=== PATIENT | male | born 1960 | race Caucasian/White ===

== ENCOUNTER 2017-08-23 07:06 | Inpatient (IN) | payer OTHER ==
[~2017-08-23] VITALS: Ht 180.3 cm; Wt 88.5 kg
--- NOTE | 2017-08-23 07:19 | ED CARDIAC/CP/PALPITATIONS ---
History of Present Illness General Chief Complaint: Chest Pain Stated Complaint: SIB URGENT CARE FOR CP Source: patient, family Exam Limitations: language barrier Vital Signs & Intake/Output Vital Signs & Intake/Output Vital Signs Date Time Temp Pulse Resp B/P B/P Pulse O2 O2 Flow FiO2 Mean Ox Delivery Rate 08/23 1002 100 Room Air 08/23 0934 98.1 80 20 160/100 100 Room Air 08/23 0831 60 20 161/87 100 Nasal 2.0L Cannula 08/23 0802 178/106 08/23 0723 96.3 92 18 143/96 99 Room Air Room Air Allergies Coded Allergies: No Known Allergies (08/23/17) Reconcile Medications Aspirin (Ecotrin*) 81 MG TABLET.DR 1 TAB PO DAILY HEART HEALTH (Reported) Oxymetazoline HCl (Afrin) 0.05 % SPRAY 1 SPRAY KARRI DAILY PRN ALLERGIES ( Reported) Triage Nurses Notes Reviewed? yes Onset: Abrupt Duration: day(s): (5) Timing: recent history Activities at Onset: none Modifying Factors: Improves With: rest. Worsens With: movement. Aspirin Today: no aspirin today Associated Symptoms: DYSPNEA WITH EXERTION HPI: This is a very pleasant 56-year-old male, Nauruan speaking primarily who presents to the ER for chief complaint of shortness of breath that began on Monday with exertion. On Monday he noticed at work that he was unable to do the things he normally did. No chest pain. He went to go see urgent care that day who told him that his heart was fast and regular and advised him to come to the ER. He decided not to come on Monday but this morning he made the decision to come to the hospital. No history of irregular heartbeat but he reports history of high blood pressure previously while in the service. History is obtained via daughter over the phone. He denies any smoking history. Occasional alcohol. Positive family history of hypertension. No recent prolonged immobilization. At rest he denies any shortness of breath or chest pain. He usually takes a baby aspirin but did not take it today. Past History Travel History Traveled to [place] past 21 day No Medical History Any Pertinent Medical History? see below for history Cardiovascular: hypertension (NO MEDS) Surgical History Surgical History: non-contributory Family History Comment: HTN IN FAMILY Hx Contributory? Yes Review of Systems Review of Systems Constitutional: Denies: chills, fever. EENTM: Reports: no symptoms. Respiratory: Reports: short of breath. Denies: cough, sputum production. Cardiovascular: Denies: chest pain, palpitations, peripheral edema. GI: Denies: abdominal pain. Genitourinary: Reports: no symptoms. Musculoskeletal: Reports: no symptoms. Skin: Reports: no symptoms. Neurological/Psychological: Reports: no symptoms. Hematologic/Endocrine: Denies: bruising, bleeding, polyuria, polydipsia. Immunologic/Allergic: Denies: splenectomy. All Other Systems: Reviewed and Negative Physical Exam Physical Exam General Appearance: well developed/nourished, alert, awake, mild distress, moderate distress Head: atraumatic, normal appearance Eyes: Bilateral: normal appearance, PERRL, EOMI. Ears, Nose, Throat: normal pharynx, normal ENT inspection, hearing grossly normal Neck: normal inspection, supple, full range of motion Respiratory: normal breath sounds, chest non-tender, no respiratory distress Cardiovascular: tachycardia, irregularly irregular Peripheral Pulses: 2+ radial (R), 2+ radial (L) Gastrointestinal: normal bowel sounds, soft, non-tender Rectal: BROWN OB NEG Extremities: normal inspection, normal capillary refill, normal range of motion, swelling (TRACE BILATERALLY) Neurologic/Psych: no motor/sensory deficits, awake, alert, oriented x 3 Skin: intact, normal color, warm/dry Core Measures ACS in differential dx? Yes CVA/TIA Diagnosis No Sepsis Present: No Sepsis Focused Exam Completed? No Progress Differential Diagnosis: AMI, atrial fibrillation, CHF/pulm edema, pulmonary embolism Plan of Care: Orders Procedure Date/time Status Heart Healthy Diet 08/23 L Active Patient Data 08/23 0934 Active ED Holding Orders 08/23 0847 Active Admit to inpatient 08/23 0847 Active Vital Signs 08/23 0847 Active Code Status 08/23 0847 Active Intake & Output 08/23 0831 Active TROPONIN LEVEL 08/23 0716 Complete PARTIAL THROMBOPLASTIN TIME 08/23 0716 Complete PROTHROMBIN TIME 08/23 0716 Complete LIPASE 08/23 0716 Complete HEPATIC FUNCTION PANEL 08/23 0716 Complete D-DIMER 08/23 0716 Complete CBC WITHOUT DIFFERENTIAL 08/23 0716 Complete BASIC METABOLIC PANEL 08/23 0716 Complete AMYLASE 08/23 0716 Complete EKG 08/23 0708 Active Current Medications Sig/Nandini Start time Last Medication Dose Stop Time Status Admin Diltiazem HCl 125 MG ONCE ONE 08/23 744 AC 08/23 (Cardizem DRIP) 08/23 Sodium Chloride 100 ML (Normal Saline 0.9%) Heparin Sodium 25,000 UNIT Q24H 08/23 744 AC 08/23 (Porcine) 08 (Heparin) Sodium Chloride 500 ML Laboratory Tests 08/23/17 0744: Anion Gap 19 H, Estimated GFR 57 L, BUN/Creatinine Ratio 27.7 H, Glucose 261 H, Calcium 9.2, Total Bilirubin 1.0, Direct Bilirubin 0.4, AST 338 H, ALT 330 H, Alkaline Phosphatase 122, Troponin I 0.38 *H, Total Protein 7.1, Albumin 4.1, Amylase 36, Lipase 270, PT 14.7 H, INR 1.40 H, APTT 31, D-Dimer High Sensitivty 3281 H, CBC w Diff NO MAN DIFF REQ, RBC 5.71, MCV 86.4, MCH 28.6, RDW 13.7, MPV 11.5 H, Gran % 72.7, Lymphocytes % 19.4 L, Monocytes % 7.1, Eosinophils % 0.4, Basophils % 0.4, Absolute Granulocytes 7.5 H, Absolute Lymphocytes 2.0, Absolute Monocytes 0.7 H, Absolute Eosinophils 0, Absolute Basophils 0, PUBS MCHC 33.1 Diagnostic Imaging: Viewed by Me: Radiology Read, CT Scan. Discussed w/RAD: Radiology Read, CT Scan. Radiology Impression: PATIENT: EDU BIRCH PRESENT AGE: 56 PATIENT ACCOUNT NO: [id number] : 56 LOCATION: [facility] ORDERING PHYSICIAN: Blaire Penn MD SERVICE DATE: 08/23/17 EXAM TYPE: CAT - CTA CHEST-PULMONARY EMBOLISM EXAMINATION: CT ANGIOGRAM OF THE CHEST WITH AND WITHOUT CONTRAST (CT PULMONARY ANGIOGRAM FOR PE) CLINICAL INFORMATION: Shortness of breath, rapid atrial fibrillation COMPARISON: Chest x-ray from earlier today TECHNIQUE: Prior to contrast administration, noncontrast localization images were obtained. Subsequently, multidetector volumetric imaging was performed from the thoracic inlet to below the diaphragms following the administration of 95 mL Optiray 320 intravenous contrast. No contrast reaction reported. Sagittal, coronal, and MIP oblique sagittal reformatted images were obtained on the CT workstation, uploaded to PACS, and reviewed. Total exam dose-length product 531.61 mGy-cm. FINDINGS: QUALITY OF STUDY/ CONTRAST BOLUS: Satisfactory PULMONARY ARTERIES: No central or segmental pulmonary emboli. Assessment of the subsegmental vasculature is limited due to respiratory motion artifact. THORACIC AORTA: Not fully evaluated given the contrast bolus timing. The proximal ascending aorta measures approximately 4.3 cm in diameter. LUNG: No regions of consolidation are present bilaterally. There is smooth interlobular septal thickening towards the lung periphery, most prominent at the bases and most consistent with mild interstitial edema. Mild associated bronchial wall thickening is noted. PLEURA: No pneumothorax. Trace right pleural effusion is noted. MEDIASTINUM: The visualized thyroid gland is unremarkable. There are mildly enlarged subcarinal, prevascular, and paratracheal lymph nodes which are nonspecific. There is moderate cardiomegaly. Coronary artery calcifications are present. CHEST WALL/AXILLA: No axillary or internal mammary lymphadenopathy. OSSEOUS STRUCTURES: Syndesmophytes are noted in the spine, favored to reflect ankylosing spondylitis. UPPER ABDOMEN: There is mild reflux of contrast into the hepatic veins which may be seen with elevated right heart pressures. IMPRESSION: 1. No pulmonary embolus identified. Limited assessment of the distal vasculature due to respiratory motion artifact. 2. Mild interstitial edema. 3. Mild lymphadenopathy which is nonspecific and can be reactive in the setting of edema. Other reactive causes are also possible. In the proper clinical setting, a malignant etiology could also have this appearance. 4. Cardiomegaly. Mild reflux of contrast into the hepatic veins, which can be seen with elevated right heart pressures. 5. Dilated ascending aorta to approximately 4.3 cm. 6. Trace right pleural effusion. 7. Appearance of the spine is consistent with ankylosing spondylitis. VTE: negative DICTATED BY: Blayne Laws MD DATE/TIME DICTATED:08/23/17941 SHIPPING AND RECEIVING OPERATOR: ANGELICA DATE/TIME TRANSCRIBED:08/23/17941 CONFIDENTIAL, DO NOT COPY WITHOUT APPROPRIATE AUTHORIZATION. <Electronically signed in Other Vendor System> SIGNED BY: Blayne Laws MD 08/23/17 1000 CXR Impression: PATIENT: EDU BIRCH PRESENT AGE: 56 PATIENT ACCOUNT NO: [id number] : 56 LOCATION: [facility] ORDERING PHYSICIAN: Blaire Penn MD SERVICE DATE: 08/23/17 EXAM TYPE: RAD - XRY -PORTABLE CHEST XRAY EXAMINATION: XR PORTABLE CHEST CLINICAL INFORMATION: Dyspnea, new rapid atrial fibrillation, rule out CHF COMPARISON: None TECHNIQUE: Portable frontal view of the chest was obtained. FINDINGS: Lung volumes are symmetric. No focal consolidation is seen. No evidence of pneumothorax, significant pleural effusion, or overt pulmonary edema. The cardiac silhouette is enlarged. No acute osseous findings are seen. IMPRESSION: Enlarged cardiac silhouette. No overt edema. DICTATED BY: Blayne Laws MD DATE/TIME DICTATED: 08/23/17809 SHIPPING AND RECEIVING OPERATOR:ANGELICA DATE/TIME TRANSCRIBED:08/23/17809 CONFIDENTIAL, DO NOT COPY WITHOUT APPROPRIATE AUTHORIZATION. <Electronically signed in Other Vendor System> SIGNED BY: Blayne Laws MD 08/23/17814 Initial ED EKG: AFIB (RVR, ST DEPRESSION 1, AVL V4-6) Rhythm Strip: atrial fibrillation Departure Departure Time of Disposition: 845 Disposition: STILL A PATIENT Condition: Stable Clinical Impression Primary Impression: Atrial fibrillation, rapid Secondary Impressions: Elevated troponin Departure Forms: Customer Survey General Discharge Information Admission Note Spoke With: Toño DEGROOT PHD,Elian Cole Documentation of Exam: Documentation of any treatments & extenuating circumstances including Concerns Regarding Discharge (functional status, medication knowledge or non-compliance, living conditions, etc.) that warrant an admission rather than observation: [ TELE MONITOR, IV HEPARIN DRIP, IV CARDIZEM DRIP, SERIAL EKG/TROPONIN, F/U CT CHEST ANGIOGRAM, ECHOCARDIOGRAM] Critical Care Note Critical Care Note Critical Care Time: 30-74 min
[2017-08-23] MEDS ORDERED: ASPIRIN EC81 M1 PO (07:51)
[2017-08-23] MEDS ORDERED: AFRIN30 ML NAS (07:52)
[2017-08-23 08:02] LABS: ABSOLUTE BASOPHIL COUNT 0 /CUMM (0.0-0.2); ABSOLUTE EOSINOPHIL COUNT 0 /CUMM (0.0-0.7); ABSOLUTE GRANULOCYTE CT 7.5 /CUMM (1.4-6.5); ABSOLUTE MONOCYTE COUNT 0.7 /CUMM (0.10-0.60); BASOPHIL % 0.4 % (0.0-2.0); EOSINOPHIL % 0.4 % (0-5); GRANULOCYTE % 72.7 % (42.2-75.2); HEMATOCRIT 49.4 % (42-52); MEAN CORPUSCULAR HGB 28.6 PG (27.0-31.0); MEAN CORPUSCULAR HGB CONC 33.1 G/DL (33.0-37.0); MEAN CORPUSCULAR VOLUME 86.4 FL (80.0-94.0); MEAN PLATELET VOLUME 11.5 FL (7.4-10.4); PLATELET COUNT 227 /CUMM (130-400); RBC DISTRIBUTION WIDTH 13.7 % (11.5-14.5); RED BLOOD CELL CT 5.71 /CUMM (4.70-6.10); WHITE BLOOD CELL COUNT 10.4 /CUMM (4.8-10.8)
--- NOTE | 2017-08-23 08:15 | RADIOLOGY REPORT ---
EXAMINATION: XR PORTABLE CHEST CLINICAL INFORMATION: Dyspnea, new rapid atrial fibrillation, rule out CHF COMPARISON: None TECHNIQUE: Portable frontal view of the chest was obtained. FINDINGS: Lung volumes are symmetric. No focal consolidation is seen. No evidence of pneumothorax, significant pleural effusion, or overt pulmonary edema. The cardiac silhouette is enlarged. No acute osseous findings are seen. IMPRESSION: Enlarged cardiac silhouette. No overt edema.
[2017-08-23 08:17] LABS: PT 14.7 SEC (9.4-12.5); PTT 31 SEC (25-37)
--- NOTE | 2017-08-23 10:00 | CT SCAN REPORT ---
EXAMINATION: CT ANGIOGRAM OF THE CHEST WITH AND WITHOUT CONTRAST (CT PULMONARY ANGIOGRAM FOR PE) CLINICAL INFORMATION: Shortness of breath, rapid atrial fibrillation COMPARISON: Chest x-ray from earlier today TECHNIQUE: Prior to contrast administration, noncontrast localization images were obtained. Subsequently, multidetector volumetric imaging was performed from the thoracic inlet to below the diaphragms following the administration of 95 mL Optiray 320 intravenous contrast. No contrast reaction reported. Sagittal, coronal, and MIP oblique sagittal reformatted images were obtained on the CT workstation, uploaded to PACS, and reviewed. Total exam dose-length product 531.61 mGy-cm. FINDINGS: QUALITY OF STUDY/CONTRAST BOLUS: Satisfactory PULMONARY ARTERIES: No central or segmental pulmonary emboli. Assessment of the subsegmental vasculature is limited due to respiratory motion artifact. THORACIC AORTA: Not fully evaluated given the contrast bolus timing. The proximal ascending aorta measures approximately 4.3 cm in diameter. LUNG: No regions of consolidation are present bilaterally. There is smooth interlobular septal thickening towards the lung periphery, most prominent at the bases and most consistent with mild interstitial edema. Mild associated bronchial wall thickening is noted. PLEURA: No pneumothorax. Trace right pleural effusion is noted. MEDIASTINUM: The visualized thyroid gland is unremarkable. There are mildly enlarged subcarinal, prevascular, and paratracheal lymph nodes which are nonspecific. There is moderate cardiomegaly. Coronary artery calcifications are present. CHEST WALL/AXILLA: No axillary or internal mammary lymphadenopathy. OSSEOUS STRUCTURES: Syndesmophytes are noted in the spine, favored to reflect ankylosing spondylitis. UPPER ABDOMEN: There is mild reflux of contrast into the hepatic veins which may be seen with elevated right heart pressures. IMPRESSION: 1. No pulmonary embolus identified. Limited assessment of the distal vasculature due to respiratory motion artifact. 2. Mild interstitial edema. 3. Mild lymphadenopathy which is nonspecific and can be reactive in the setting of edema. Other reactive causes are also possible. In the proper clinical setting, a malignant etiology could also have this appearance. 4. Cardiomegaly. Mild reflux of contrast into the hepatic veins, which can be seen with elevated right heart pressures. 5. Dilated ascending aorta to approximately 4.3 cm. 6. Trace right pleural effusion. 7. Appearance of the spine is consistent with ankylosing spondylitis. VTE: negative
--- NOTE | 2017-08-23 10:41 | History & Physical ---
General Information and HPI MD Statement: I have seen and personally examined EDU BIRCH and documented this H&P. The patient is a 56 year old M who presented with a patient stated chief complaint of [chest pain]. Source of Information: patient, family Exam Limitations: language barrier History of Present Illness: Mr. Birch is 56 year old male with no significant past medical history except for hypertension not on any medication presented to ED with chief complain of chest pain since Monday. Most of the history was obtained from patient's daughter due to language barrier, his primary language is Greenlandic. They reported that on Monday on exertion, he start to feel pressure sensation that start in abdomen and goes up to his chest and bilateral neck associated with shortness of breath, sometimes palpitation. Reported complete resolve of his symptoms with rest. 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 Yesterday patient went to urgent clinic where he was found to have new onset atrial fibrillation and was advised to go to ER. Patient decided to go back home and this morning his symptoms prevented him from going to work hence decided to come to ED for evaluation. His daughter reported history of shortness of breath upon walking uphill however he didn't seek any medical attention, last time saw a physician was 20 years ago. Smoked briefly early 20 years ago, occasional alcohol consumption, no drugs. Only medication is aspirin. Family history significant for cardiomyopathy and his mom, diabetes. No previous past surgical history. In ED patient was found to have new onset atrial fibrillation with rapid ventricular response and elevated troponins 0.[address] depression in lead 1, aVL, V4, 5 and 6. Patient was started on IV heparin and IV Cardizem drip. Allergies/Medications Allergies: Coded Allergies: No Known Allergies (08/23/17) Home Med list Aspirin (Ecotrin*) 81 MG TABLET.DR 1 TAB PO DAILY HEART HEALTH (Reported) Oxymetazoline HCl (Afrin) 0.05 % SPRAY 1 SPRAY KARRI DAILY PRN ALLERGIES ( Reported) Past History Travel History Traveled to [place] past 21 day No Medical History Cardiovascular: hypertension (NO MEDS) Surgical History Surgical History: none Past Family/Social History Psychosocial History Where do you live? Home Who Do You Live With? spouse Services at Home: None Primary Language: Greenlandic Smoking Status: Former Smoker ETOH Use: denies use Illicit Drug Use: denies illicit drug use Name of POA/HCP: Daughter Functional Ability ADLs Independent: dressing, eating, toileting, bathing. Ambulation: independent IADLs Independent: shopping, housework, finances, food prep, telephone, transportation , medication admin. Review of Systems Review of Systems Constitutional: Denies: chills, malaise, weakness. EENTM: Denies: blurred vision, ear pain, nasal congestion, nasal pain, throat pain. Cardiovascular: Reports: chest pain, palpitations. Denies: edema, orthopena, syncope. Respiratory: Reports: short of breath. Denies: cough, orthopnea. GI: Denies: abdominal pain, constipation, diarrhea, nausea, vomiting. Genitourinary: Denies: dysuria, frequency, hematuria. Musculoskeletal: Denies: back pain, joint pain. Skin: Denies: rash. Neurological/Psychological: Denies: ataxia, confusion. Exam & Diagnostic Data Last 24 Hrs of Vital Signs/I&O Vital Signs Date Time Temp Pulse Resp B/P B/P Pulse O2 O2 Flow FiO2 Mean Ox Delivery Rate 08/23 1411 98.0 78 20 167/90 98 Room Air 08/23 1224 98.1 74 20 164/98 98 Room Air 08/23 1122 98.0 81 20 160/100 100 Room Air 08/23 1002 100 Room Air 08/23 0934 98.1 80 20 160/100 100 Room Air 08/23 0831 60 20 161/87 100 Nasal 2.0L Cannula 08/23 0802 178/106 08/23 0723 96.3 92 18 143/96 99 Room Air Room Air Intake & Output 08/23 1600 08/23 0800 08/23 0000 Intake Total Output Total Balance Patient 97.749 kg Weight Weight Standing Scale Measurement Method Physical Exam General Appearance Alert, Oriented X3, Cooperative, No Acute Distress Skin No Rashes Skin Temp/Moisture Exam: Warm/Dry HEENT Atraumatic, PERRLA, EOMI, Mucous Membr. moist/pink Neck Supple, No JVD Lymphatic no cervical lymphadenopathy Cardiovascular Normal S1, Normal S2, No Murmurs, irregular irregular Lungs Clear to Auscultation, Normal Air Movement Abdomen Normal Bowel Sounds, Soft, No Tenderness Neurological Normal Speech, Strength at 5/5 X4 Ext, Normal Tone, Sensation Intact, Cranial Nerves 3-12 NL, Reflexes 2+ Extremities No Clubbing, No Cyanosis, Normal Pulses, Bilateral trace pedal edema Vascular Normal Pulses Assessment/Plan Assessment: Mr. Birch is 56 year old male with no significant past medical history except for hypertension not on any medication presented to ED with chief complain of chest pain since Monday. On admission Vital signs temperature 96.3, pulse 112 and regular, blood pressure 143/96, respiratory rate 18 with saturation 99% room air Labs significant for white blood cell 10.4, H&H 16.3/49.4, platelet count 227, sodium 140, potassium 3.8, chloride 98, bicarbonate 23, anion gap 19, BUN 36, creatinine 1.3, glucose 261, AST 338, ALT 330, alkaline phosphatase 122, troponin 0.38, lipase 270 Chest x-ray IMPRESSION: Enlarged cardiac silhouette. No overt edema. CTA IMPRESSION: 1. No pulmonary embolus identified. Limited assessment of the distal vasculature due to respiratory motion artifact. 2. Mild interstitial edema. 3. Mild lymphadenopathy which is nonspecific and can be reactive in the setting of edema. Other reactive causes are also possible. In the proper clinical setting, a malignant etiology could also have this appearance. 4. Cardiomegaly. Mild reflux of contrast into the hepatic veins, which can be seen with elevated right heart pressures. 5. Dilated ascending aorta to approximately 4.3 cm. 6. Trace right pleural effusion. 7. Appearance of the spine is consistent with ankylosing spondylitis. VTE: negative Problem list #New onset atrial fibrillation with rapid ventricular response #Elevated troponins and EKG changes indicating lateral myocardial ischemia #Probable new onset congestive heart failure in setting of shortness of breath, lower extremity edema, interstitial edema and pleural effusion in CTA chest, hepatic congestion on CTA and elevated AST, ALT with negative hepatitis panel however malignancy should be ruled out #Elevated d-dimer 3281, DVT to be ruled out however guo criteria negative #Dilated ascending aorta #Lymphadenopathy in CTA chect for malignancy to rolled out #New onset diabetes mellitus with hemoglobin A1c 12.2 #Hypothyroidism with TSH 8.1, normal free T4 #Acute kidney injury, creatinine 1.3 without baseline Plan -Patient was initially admitted to telemetry floor but given his present clinical condition and your diagnosis of atrial fibrillation with elevated troponin, new onset diabetes and probable acute congestive heart failure will place patient in ICU for close monitoring -Continue Cardizem drip and heparin drip for atrial fibrillation -Start Lasix 20 mg for volume overload -Obtain abdominal ultrasound -Obtain lower extremity venous Doppler scan -Trend troponin and EKG -Obtain proBNP -Monitor kidney function -Obtain endocrinology consultation -Start high-dose statin 40 mg daily -Start NovoLog sliding scale medium dose and Accu-Chek 3 times a day before meals and at bedtime DVT prophylaxis heparin IV Diet diabetic diet Code full As Ranked By This Provider Problem List: 1. Elevated troponin 2. Atrial fibrillation, rapid 3. Diabetes mellitus, new onset Core Measures/Misc (04/30) Acute Coronary Syndrome ACS Diagnosis: Yes Congestive Heart Failure Congestive Heart Failure Diagnosis No Cerebrovascular Accident CVA/TIA Diagnosis: No VTE (View Protocol) VTE Risk Factors Age>40 No Mechanical VTE Prophylaxis d/t N/A MechProphylax Ordered No VTE Pharm Prophylaxis d/t NA PharmProphylax ordered Sepsis (View protocol) Sepsis Present: No
[2017-08-23 15:48] LABS: PTT 98 SEC (25-37)
[2017-08-23 16:00] VITALS: BP 164/110
--- NOTE | 2017-08-23 17:05 | ULTRASOUND REPORT ---
EXAMINATION: US TRIPLEX OF LOWER EXTREMITIES, BILATERAL CLINICAL INFORMATION: 56-year-old male with lower extremity swelling. COMPARISON: None TECHNIQUE: Color-flow triplex imaging with spectral analysis and compression Doppler were performed on the lower extremities. FINDINGS: Respiratory variation, normal compression and augmented flow are noted throughout the lower extremities. The visualized common femoral vein, superficial femoral vein, profunda femoral vein, popliteal vein and midcalf peroneal and posterior tibial venous segments show no evidence of deep venous thrombosis. There is no Baez's cyst. IMPRESSION: Normal triplex scan without evidence of deep venous thrombosis involving the lower extremities.
--- NOTE | 2017-08-23 17:17 | ULTRASOUND REPORT ---
EXAMINATION: US ABDOMEN COMPLETE CLINICAL INFORMATION: Elevated liver enzymes. COMPARISON: None. TECHNIQUE: Real-time imaging of the abdominal viscera. FINDINGS: PANCREAS: Normal. ABDOMINAL AORTA: The proximal segment is normal in caliber. INFERIOR VENA CAVA: Visualized portions are normal. LIVER: Normal. The liver demonstrates normal size, contour and echogenicity. No focal lesion or intrahepatic biliary duct dilatation. GALLBLADDER: There are numerous gallstones, with a [id number] complex. There is gallbladder wall thickening to a maximum of 1.0 cm, without pericholecystic fluid. COMMON BILE DUCT: Normal in caliber measuring 0.7 cm in diameter. RIGHT KIDNEY: Normal. No hydronephrosis. No renal calculi or focal parenchymal lesions. The kidney measures 12.5 cm in maximum dimension. LEFT KIDNEY: Normal. No hydronephrosis. No renal calculi or focal parenchymal lesions. The kidney measures 12.1 cm in maximum dimension. SPLEEN: Normal. The spleen measures 11.1 cm in maximum dimension. FREE FLUID: None. IMPRESSION: There is marked cholelithiasis. There is gallbladder wall thickening, consistent with cholecystitis, acute versus chronic. Please correlate clinically. No choledocholithiasis is seen.
--- NOTE | 2017-08-23 17:57 | Cons- Cardiology ---
General Information and HPI Consulting Request Date of Consult: 08/23/17 Requested By: Toño DEGROOT PHD,Elian Cole History of Present Illness: Mr. Mitchell is a 56 year old male with history of hypertension. He has not seen a physician in many years. About 6 month ago this patient began feeling poorly with severely decreased exercise tolerance. He not reports a consistent exertional chest tightness radiating toward his left neck that is relieved by rest. There is no associated nausea, vomiting or diaphoresis. He does feel lightheaded and has occasional palpitations. Finally, he has intermittent leg swelling. In consideration of these symptoms he presented to a walk in clinic. They discovered atrial fibrillation and refered the patient to the ER. In the ER this patient was found to be in atrial fibrillation with increased heart rate. It is of unkown duration. He has a positive troponin consistent with a NSTEMI. His blood pressure is also hightly elevated. Labs show mild renal insufficiency with a creatinine of 1.3 with elevated hepatic transaminases and evidence of hypothyroidism. He also has an increased BNP consistent with CHF. His chest X-ray does show cephalization consistent with this diagnosis. Finally, the patient has a highly elevated D-dimer with his chest CT not showing any evidence of central or segmental pulmonary embolism. This study did show a mildly enlarged aorta, coronary calcifications and mediastinal enlarged lymph nodes. Allergies/Medications Allergies: Coded Allergies: No Known Allergies (08/23/17) Home Med List: Aspirin (Ecotrin*) 81 MG TABLET.DR 1 TAB PO DAILY HEART HEALTH (Reported) Oxymetazoline HCl (Afrin) 0.05 % SPRAY 1 SPRAY KARRI DAILY PRN ALLERGIES ( Reported) Review of Systems Review of Systems: A review of systems is unremarkable other than the above. Past History Travel History Traveled to [place] past 21 day No Medical History Cardiovascular: hypertension (NO MEDS) Surgical History Surgical History: 1 Family History Family History Reviewed? Mother: CAD in 70's Psychosocial History Where Do You Live? Home Who Do You Live With? spouse Services at Home: None Primary Language: Honduran Smoking Status: Former Smoker ETOH Use: denies use Illicit Drug Use: denies illicit drug use Name of POA/HCP: Daughter Functional Ability ADLs Independent: dressing, eating, toileting, bathing. Ambulation: independent IADLs Independent: shopping, housework, finances, food prep, telephone, transportation , medication admin. Exam & Diagnostic Data Vital Signs and I&O Vital Signs Date Time Temp Pulse Resp B/P B/P Pulse O2 O2 Flow FiO2 Mean Ox Delivery Rate 08/23 1411 98.0 78 20 167/90 98 Room Air 08/23 1224 98.1 74 20 164/98 98 Room Air 08/23 1122 98.0 81 20 160/100 100 Room Air 08/23 1002 100 Room Air 08/23 0934 98.1 80 20 160/100 100 Room Air 08/23 0831 60 20 161/87 100 Nasal 2.0L Cannula 08/23 0802 178/106 08/23 0723 96.3 92 18 143/96 99 Room Air Room Air Intake & Output 08/23 1600 08/23 0800 08/23 0000 08/22 1600 08/22 0808/22 0000 Intake Total Output Total Balance Patient 215 lb Weight Weight Standing Scale Measurement Method Physical Exam: General: WD/WN male in NAD; alert and oriented x 3 HEENT: NC/AT, PERRL, EOMI Neck: no JVD, no carotid bruit Heart: irregularly irregular without murmur Lungs: clear bilaterally ABdomen: soft, NT, +ve bowel sounds Extremities: 1+ leg edema Assessment/Plan Assessment/Plan * This patient has atrial fibrillation of unclear duration. As such, it is possible that he has developed a tachycardia induced cardiomyopathy leading to CHF. We will obtain an echocardiogram to assess his overall EF and to look for regional wall motion abnormalities. We will also obtain an endocrinology consult due to the patient's hypothyroidism. Begin synthroid at 25mcg daily. Begin anticoagulation with IV heparin. We will hold off of beginning coumadin for now since consideration is being given to a cardiac catheterization. Begin Lopressor at 25mg BID for rate control. We will wean off his IV Cardizem as tolerated. * CHF: Diurese with Lasix 20mg IV BID. Obtain an echo. * Hypertension: Begin Lisinopril 20mg daily and follow his BUN, creatinine and potassium * Increased D-dimer. We will consider peripheral pulmonary emboli. For now continue IV heparin. * OK: Begin asprin 324mg daily, IV heparin as above and Plavix 75 mg daily after a 300mg loading dose. We will hold off on a statin due to his elevated hepatic transaminases that are the likely result of hepatic congestion. Begin NTG paste 1" Q 6 hours. Beta keyon as above. Follow cardiac enzymes until they peak. Consult Acknowledgment - Thank you for your consult request.
--- NOTE | 2017-08-23 18:47 | PN- Endocrinology ---
Assessment/Plan Assessment: This 56-year-old male came to the emergency room because of chest heaviness. According to his daughter who acts as an youth counselor he has not been feeling well for several months. He noticed some shortness of breath even during the summer but did not seek medical attention. When he finally went to a walk-in clinic he was found to have atrial fibrillation and was sent to the emergency room. His troponin was 0.38 when he presented and he also has elevated liver function tests. His blood sugar was found to be elevated and a hemoglobin A1c has been done which is 12.2%. His initial blood sugar was 261. In speaking with the patient he states that chest pressure has declined and is feeling somewhat improved this evening. He has received some insulin and his blood sugar is also improved. Of note his TSH is mildly elevated at 8.1. His free T4 however is 1.78 and total T3 0.9. There is a family history of thyroid disease and his mother. Subjective Subjective: Feels a little better than he did prior to admission Review of Systems Constitutional: Denies: chills, fever. Cardiovascular: Reports: chest pain (heaviness anterior chest). Respiratory: Reports: short of breath. Gastrointestinal: Denies: abdominal pain, nausea, vomiting. Musculoskeletal: Denies: joint pain. Skin: Reports: no symptoms. Objective Last 24 Hrs of Vital Signs/I&O Vital Signs Date Time Temp Pulse Resp B/P B/P Pulse O2 O2 Flow FiO2 Mean Ox Delivery Rate 08/23 1834 158/91 08/23 1411 98.0 78 20 167/90 98 Room Air 08/23 1224 98.1 74 20 164/98 98 Room Air 08/23 1122 98.0 81 20 160/100 100 Room Air 08/23 1002 100 Room Air 08/23 0934 98.1 80 20 160/100 100 Room Air 08/23 0831 60 20 161/87 100 Nasal 2.0L Cannula 08/23 0802 178/106 08/23 0723 96.3 92 18 143/96 99 Room Air Room Air Intake & Output 08/23 1600 08/23 0800 08/23 0000 Intake Total Output Total Balance Patient 215 lb Weight Weight Standing Scale Measurement Method Vital Signs Date Time Temp Pulse Resp B/P B/P Pulse O2 O2 Flow FiO2 Mean Ox Delivery Rate 08/23 1834 158/91 08/23 1411 98.0 78 20 167/90 98 Room Air 08/23 1224 98.1 74 20 164/98 98 Room Air 08/23 1122 98.0 81 20 160/100 100 Room Air 08/23 1002 100 Room Air 08/23 0934 98.1 80 20 160/100 100 Room Air 08/23 0831 60 20 161/87 100 Nasal 2.0L Cannula 08/23 0802 178/106 08/23 0723 96.3 92 18 143/96 99 Room Air Room Air Intake & Output 08/23 1600 08/23 0800 08/23 0000 Intake Total Output Total Balance Patient 215 lb Weight Weight Standing Scale Measurement Method Physical Exam General Appearance: alert, awake, comfortable Neck: normal inspection Respiratory: normal breath sounds Cardiovascular: irregularly irregular Abdomen: normal bowel sounds, soft Extremities: normal inspection Current Medications: Current Medications Sig/Nandini Start time Last Medication Dose Route Stop Time Status Admin Aspirin 0 .STK-MED ONE 08/23 0850 DC PO Aspirin 325 MG ONCE ONE 08/23 844 DC 08/23 PO 08/23 0846 0848 Atorvastatin Calcium 40 MG 1700 08/23 1700 AC 08/23 PO 1732 Clopidogrel Bisulfate 75 MG DAILY 08/24 1000 AC PO Clopidogrel Bisulfate 300 MG ONCE ONE 08/23 1830 DC PO 08/23 1831 Diltiazem HCl 0 .STK-MED ONE 08/23 0750 DC .ROUTE Diltiazem HCl 10 MG ONCE ONE 08/23 0745 DC 08/23 IV PUSH 08/23 0746 0802 Diltiazem HCl 125 MG ONCE ONE 08/23 744 AC 08/23 Sodium Chloride 100 ML IV 08/23 2013 0830 Furosemide 20 MG DAILY 08/24 1000 DC IV Furosemide 20 MG BID 08/24 1000 AC IV Furosemide 0 .STK-MED ONE 08/23 1127 DC IV Furosemide 20 MG ONCE ONE 08/23 1100 DC 08/23 IV 08/23 1101 1126 Heparin Sodium 0 .STK-MED ONE 08/23 0750 DC (Porcine) .ROUTE Heparin Sodium 25,000 UNIT Q24H 08/23 744 AC 08/23 (Porcine) IV 0810 Sodium Chloride 500 ML Heparin Sodium 5,000 UNIT ONCE ONE 08/23 0745 DC 08/23 (Porcine) IV 08/23 0746 0810 Insulin Aspart 0 TIDAC 08/23 1700 AC 08/23 [place] 1714 Lisinopril 20 MG DAILY 08/23 1830 PO Metoprolol Tartrate 25 MG BID 08/23 1815 08/23 PO 1834 Nitroglycerin 1 GM Q6 08/23 182 08/23 [facility] 1834 Results Pertinent Lab/Cedric Results: Laboratory Tests 08/23 08/23 08/23 1517 1350 0744 Chemistry Sodium (137 - 145 mmol/L) 140 Potassium (3.5 - 5.1 mmol/L) 3.8 Chloride (98 - 107 mmol/L) 98 Carbon Dioxide (22 - 30 mmol/L) 23 Anion Gap (5 - 16) 19 H BUN (9 - 20 mg/dL) 36 H Creatinine (0.7 - 1.2 mg/dL) 1.3 H Estimated GFR (>60 ml/min) 57 L BUN/Creatinine Ratio (7 - 25 %) 27.7 H Glucose (65 - 99 mg/dL) 261 H Hemoglobin A1c (4.2 - 5.8 %) 12.2 H Calcium (8.4 - 10.2 mg/dL) 9.2 Total Bilirubin (0.2 - 1.3 mg/dL) 1.0 Direct Bilirubin (< 0.4 mg/dL) 0.4 AST (17 - 59 U/L) 338 H ALT (21 - 72 U/L) 330 H Alkaline Phosphatase (< 127 U/L) 122 Troponin I (<0.11 ng/ml) 0.38 *H 0.38 *H Loe-X-Javkezovqix Pept (<125 pg/mL) 6720 H Total Protein (6.3 - 8.2 g/dL) 7.1 Albumin (3.5 - 5.0 g/dL) 4.1 Amylase (30 - 110 U/L) 36 Lipase (23 - 300 U/L) 270 TSH (0.270 - 4.200 uIU/mL) 8.100 H Free T4 (0.64 - 1.79 ng/dL) 1.78 Total T3 (0.97 - 1.69 ng/mL) 0.90 L Coagulation PT (9.4 - 12.5 SEC) 14.7 H INR (0.90 - 1.17) 1.40 H APTT (25 - 37 SEC) 98 H 31 D-Dimer High Sensitivty (0 - 243 ng/ml) 3281 H Hematology CBC w Diff NO MAN DIFF REQ WBC (4.8 - 10.8 /CUMM) 10.4 RBC (4.70 - 6.10 /CUMM) 5.71 Hgb (14.0 - 18.0 G/DL) 16.3 Hct (42 - 52 %) 49.4 MCV (80.0 - 94.0 FL) 86.4 MCH (27.0 - 31.0 PG) 28.6 RDW (11.5 - 14.5 %) 13.7 Plt Count (130 - 400 /CUMM) 227 MPV (7.4 - 10.4 FL) 11.5 H Gran % (42.2 - 75.2 %) 72.7 Lymphocytes % (20.5 - 51.1 %) 19.4 L Monocytes % (1.7 - 9.3 %) 7.1 Eosinophils % (0 - 5 %) 0.4 Basophils % (0.0 - 2.0 %) 0.4 Absolute Granulocytes (1.4 - 6.5 /CUMM) 7.5 H Absolute Lymphocytes (1.2 - 3.4 /CUMM) 2.0 Absolute Monocytes (0.10 - 0.60 /CUMM) 0.7 H Absolute Eosinophils (0.0 - 0.7 /CUMM) 0 Absolute Basophils (0.0 - 0.2 /CUMM) 0 PUBS MCHC (33.0 - 37.0 G/DL) 33.1 Serology Hepatitis A IgM Ab (NONREACTIVE) NONREACTIVE Hep Bs Antigen (NONREACTIVE) NONREACTIVE Hep B Core IgM Ab Conf (NONREACTIVE) NONREACTIVE Hepatitis C Antibody (NONREACTIVE) NONREACTIVE
--- NOTE | 2017-08-23 18:54 | Cons- Endocrinology ---
General Information and HPI Consulting Request Date of Consult: 08/23/17 Requested By: Dr Lundberg Reason for Consult: Uncontrolled diabetes and abnormal thyroid function test Source of Information: patient, family, old records Exam Limitations: language barrier History of Present Illness: This 56-year-old male came to the emergency room because of chest heaviness. According to his daughter who acts as an tie bucker he has not been feeling well for several months. He noticed some shortness of breath even during the summer but did not seek medical attention. When he finally went to a walk-in clinic he was found to have atrial fibrillation and was sent to the emergency room. He was also found to be hypertensive. His troponin was 0.38 when he presented and he also has elevated liver function tests. His blood sugar was found to be elevated and a hemoglobin A1c has been done which is 12.2%. His initial blood sugar was 261. In speaking with the patient he states that chest pressure has declined and is feeling somewhat improved this evening. He has received some insulin and his blood sugar is also improved. Of note his TSH is mildly elevated at 8.1. His free T4 however is 1.78 and total T3 0.9. There is a family history of thyroid disease in his mother. Allergies/Medications Allergies: Coded Allergies: No Known Allergies (08/23/17) Home Med List: Aspirin (Ecotrin*) 81 MG TABLET.DR 1 TAB PO DAILY HEART HEALTH (Reported) Oxymetazoline HCl (Afrin) 0.05 % SPRAY 1 SPRAY KARRI DAILY PRN ALLERGIES ( Reported) Review of Systems Review of Systems Constitutional: Denies: chills, fever. Cardiovascular: Reports: chest pain. Respiratory: Reports: short of breath. GI: Denies: abdominal pain, nausea, vomiting. Skin: Reports: no symptoms. Neurological/Psychological: Denies: paresthesia. Past History Travel History Traveled to [place] past 21 day No Medical History Cardiovascular: hypertension (NO MEDS) Surgical History Surgical History: 1 Psychosocial History Where Do You Live? Home Who Do You Live With? spouse Services at Home: None Primary Language: Burundian Smoking Status: Former Smoker ETOH Use: denies use Illicit Drug Use: denies illicit drug use Name of POA/HCP: Daughter Functional Ability ADLs Independent: dressing, eating, toileting, bathing. Ambulation: independent IADLs Independent: shopping, housework, finances, food prep, telephone, transportation , medication admin. Exam & Diagnostic Data Last 24 Hrs of Vital Signs/I&O Laboratory Tests 08/23 08/23 08/23 1517 1350 0744 Chemistry Sodium (137 - 145 mmol/L) 140 Potassium (3.5 - 5.1 mmol/L) 3.8 Chloride (98 - 107 mmol/L) 98 Carbon Dioxide (22 - 30 mmol/L) 23 Anion Gap (5 - 16) 19 H BUN (9 - 20 mg/dL) 36 H Creatinine (0.7 - 1.2 mg/dL) 1.3 H Estimated GFR (>60 ml/min) 57 L BUN/Creatinine Ratio (7 - 25 %) 27.7 H Glucose (65 - 99 mg/dL) 261 H Hemoglobin A1c (4.2 - 5.8 %) 12.2 H Calcium (8.4 - 10.2 mg/dL) 9.2 Total Bilirubin (0.2 - 1.3 mg/dL) 1.0 Direct Bilirubin (< 0.4 mg/dL) 0.4 AST (17 - 59 U/L) 338 H ALT (21 - 72 U/L) 330 H Alkaline Phosphatase (< 127 U/L) 122 Troponin I (<0.11 ng/ml) 0.38 *H 0.38 *H Vor-[id number]-Hlcgedopesm Pept (<125 pg/mL) 6720 H Total Protein (6.3 - 8.2 g/dL) 7.1 Albumin (3.5 - 5.0 g/dL) 4.1 Amylase (30 - 110 U/L) 36 Lipase (23 - 300 U/L) 270 TSH (0.270 - 4.200 uIU/mL) 8.100 H Free T4 (0.64 - 1.79 ng/dL) 1.78 Total T3 (0.97 - 1.69 ng/mL) 0.90 L Coagulation PT (9.4 - 12.5 SEC) 14.7 H INR (0.90 - 1.17) 1.40 H APTT (25 - 37 SEC) 98 H 31 D-Dimer High Sensitivty (0 - 243 ng/ml) 3281 H Hematology CBC w Diff NO MAN DIFF REQ WBC (4.8 - 10.8 /CUMM) 10.4 RBC (4.70 - 6.10 /CUMM) 5.71 Hgb (14.0 - 18.0 G/DL) 16.3 Hct (42 - 52 %) 49.4 MCV (80.0 - 94.0 FL) 86.4 MCH (27.0 - 31.0 PG) 28.6 RDW (11.5 - 14.5 %) 13.7 Plt Count (130 - 400 /CUMM) 227 MPV (7.4 - 10.4 FL) 11.5 H Gran % (42.2 - 75.2 %) 72.7 Lymphocytes % (20.5 - 51.1 %) 19.4 L Monocytes % (1.7 - 9.3 %) 7.1 Eosinophils % (0 - 5 %) 0.4 Basophils % (0.0 - 2.0 %) 0.4 Absolute Granulocytes (1.4 - 6.5 /CUMM) 7.5 H Absolute Lymphocytes (1.2 - 3.4 /CUMM) 2.0 Absolute Monocytes (0.10 - 0.60 /CUMM) 0.7 H Absolute Eosinophils (0.0 - 0.7 /CUMM) 0 Absolute Basophils (0.0 - 0.2 /CUMM) 0 PUBS MCHC (33.0 - 37.0 G/DL) 33.1 Serology Hepatitis A IgM Ab (NONREACTIVE) NONREACTIVE Hep Bs Antigen (NONREACTIVE) NONREACTIVE Hep B Core IgM Ab Conf (NONREACTIVE) NONREACTIVE Hepatitis C Antibody (NONREACTIVE) NONREACTIVE Vital Signs Date Time Temp Pulse Resp B/P B/P Pulse O2 O2 Flow FiO2 Mean Ox Delivery Rate 08/23 1834 158/91 08/23 1600 98.4 79 10 164/110 97 Room Air 08/23 1411 98.0 78 20 167/90 98 Room Air 08/23 1224 98.1 74 20 164/98 98 Room Air 08/23 1122 98.0 81 20 160/100 100 Room Air 08/23 1002 100 Room Air 08/23 0934 98.1 80 20 160/100 100 Room Air 08/23 0831 60 20 161/87 100 Nasal 2.0L Cannula 08/23 0802 178/106 08/23 0723 96.3 92 18 143/96 99 Room Air Room Air Intake & Output 08/23 1600 08/23 0800 08/23 0000 Intake Total Output Total Balance Patient 215 lb Weight Weight Standing Scale Measurement Method Physical Exam General Appearance: alert, awake, comfortable Eyes: Bilateral: normal appearance. Neck: normal inspection Respiratory: normal breath sounds Cardiovascular: irregularly irregular Gastrointestinal: normal bowel sounds, soft, non-tender Extremities: normal inspection Labs/Cedric Results: Laboratory Tests 08/23 08/23 08/23 1517 1350 0744 Chemistry Sodium (137 - 145 mmol/L) 140 Potassium (3.5 - 5.1 mmol/L) 3.8 Chloride (98 - 107 mmol/L) 98 Carbon Dioxide (22 - 30 mmol/L) 23 Anion Gap (5 - 16) 19 H BUN (9 - 20 mg/dL) 36 H Creatinine (0.7 - 1.2 mg/dL) 1.3 H Estimated GFR (>60 ml/min) 57 L BUN/Creatinine Ratio (7 - 25 %) 27.7 H Glucose (65 - 99 mg/dL) 261 H Hemoglobin A1c (4.2 - 5.8 %) 12.2 H Calcium (8.4 - 10.2 mg/dL) 9.2 Total Bilirubin (0.2 - 1.3 mg/dL) 1.0 Direct Bilirubin (< 0.4 mg/dL) 0.4 AST (17 - 59 U/L) 338 H ALT (21 - 72 U/L) 330 H Alkaline Phosphatase (< 127 U/L) 122 Troponin I (<0.11 ng/ml) 0.38 *H 0.38 *H [id number]-[id number] Pept (<125 pg/mL) 6720 H Total Protein (6.3 - 8.2 g/dL) 7.1 Albumin (3.5 - 5.0 g/dL) 4.1 Amylase (30 - 110 U/L) 36 Lipase (23 - 300 U/L) 270 TSH (0.270 - 4.200 uIU/mL) 8.100 H Free T4 (0.64 - 1.79 ng/dL) 1.78 Total T3 (0.97 - 1.69 ng/mL) 0.90 L Coagulation PT (9.4 - 12.5 SEC) 14.7 H INR (0.90 - 1.17) 1.40 H APTT (25 - 37 SEC) 98 H 31 D-Dimer High Sensitivty (0 - 243 ng/ml) 3281 H Hematology CBC w Diff NO MAN DIFF REQ WBC (4.8 - 10.8 /CUMM) 10.4 RBC (4.70 - 6.10 /CUMM) 5.71 Hgb (14.0 - 18.0 G/DL) 16.3 Hct (42 - 52 %) 49.4 MCV (80.0 - 94.0 FL) 86.4 MCH (27.0 - 31.0 PG) 28.6 RDW (11.5 - 14.5 %) 13.7 Plt Count (130 - 400 /CUMM) 227 MPV (7.4 - 10.4 FL) 11.5 H Gran % (42.2 - 75.2 %) 72.7 Lymphocytes % (20.5 - 51.1 %) 19.4 L Monocytes % (1.7 - 9.3 %) 7.1 Eosinophils % (0 - 5 %) 0.4 Basophils % (0.0 - 2.0 %) 0.4 Absolute Granulocytes (1.4 - 6.5 /CUMM) 7.5 H Absolute Lymphocytes (1.2 - 3.4 /CUMM) 2.0 Absolute Monocytes (0.10 - 0.60 /CUMM) 0.7 H Absolute Eosinophils (0.0 - 0.7 /CUMM) 0 Absolute Basophils (0.0 - 0.2 /CUMM) 0 PUBS MCHC (33.0 - 37.0 G/DL) 33.1 Serology Hepatitis A IgM Ab (NONREACTIVE) NONREACTIVE Hep Bs Antigen (NONREACTIVE) NONREACTIVE Hep B Core IgM Ab Conf (NONREACTIVE) NONREACTIVE Hepatitis C Antibody (NONREACTIVE) NONREACTIVE Assessment/Plan Assessment/Plan This 56-year-old male presents with atrial fibrillation, abnormal liver function tests probably due to passive congestion of the liver with also cholelithiasis evident, and abnormal thyroid function test. With regard to the patient's abnormal thyroid function tests the most likely due to sick euthyroid. I would not give the patient any thyroid hormone at this time. There is a family history of thyroid disease. Therefore I will check tomorrow morning a repeat TSH free T4, total T3, anti-TPO, and antithyroglobulin. With regard to the patient's diabetes his blood sugars down to 154 tonight. I would continue the patient on sliding scale NovoLog before meals. I would also begin the patient on 6 units of Levemir at bedtime daily. We will try to use small doses of insulin because I do not want to precipitate hypoglycemia which would be very dangerous in view of his cardiac disease. Further cardiac evaluation as per Dr. Lundberg Consult Acknowledgment - Thank you for your consult request.
--- NOTE | 2017-08-23 20:45 | Event Note ---
Event Note Event Note: spoke to Dr. Robert who recomended not starting patient on levothyroxine at this time.
[2017-08-23 23:00] VITALS: BP 140/90
[2017-08-23 23:15] LABS: PTT 72 SEC (25-37)
--- NOTE | 2017-08-24 01:37 | Event Note ---
Event Note Event Note: I was informed by the nurse that patient has prolonging pauses in his tele monitor that has been getting worse since evening. He is currently on two rate control medication, lopressor 25 mg BID last dose at 6 pm ) and Cardizam drip @ 5 ml/h. I attended the patients' bedside with my brennan coresident. Patient is hemodynamically satble, HR was between low 40s-70s and he is asymptomatic. We reviewed the heart tracker showed multiple pauses since 1 pm 08/23 and patient HR has been persistantly in the controlled rate for both ACS and Afib ( >110 and < 90 b/min). Assessment Afib with RVR now borderline bradycardia and multiple pauses. potential causes: #1 ACS ( worsening) #2 polypharmecy action 1) we got and stat EKG: no new ischemic changes 2) prepared atropin and pacemakes at the bedside 3) 1 MG glucagon once to reverse the BB 4) plan was discussed with Dr. Lundberg and he agreed. 5) stopped cardizem and metoprolol
[2017-08-24 05:34] LABS: ABSOLUTE BASOPHIL COUNT 0 /CUMM (0.0-0.2); ABSOLUTE EOSINOPHIL COUNT 0.1 /CUMM (0.0-0.7); ABSOLUTE LYMPH COUNT 1.8 /CUMM (1.2-3.4); ABSOLUTE MONOCYTE COUNT 0.8 /CUMM (0.10-0.60); BASOPHIL % 0.3 % (0.0-2.0); EOSINOPHIL % 0.5 % (0-5); MEAN CORPUSCULAR HGB 28.7 PG (27.0-31.0); MEAN CORPUSCULAR HGB CONC 32.9 G/DL (33.0-37.0); MEAN CORPUSCULAR VOLUME 87.4 FL (80.0-94.0); MEAN PLATELET VOLUME 11.4 FL (7.4-10.4); PLATELET COUNT 170 /CUMM (130-400); RBC DISTRIBUTION WIDTH 14.1 % (11.5-14.5); WHITE BLOOD CELL COUNT 10.7 /CUMM (4.8-10.8)
[2017-08-24 05:43] LABS: HEMATOCRIT 42.8 % (42-52)
--- NOTE | 2017-08-24 07:35 | PN- Housestaff ---
Subjective Follow-up For: NSTEMI Chest Pain HTN Subjective: Mr Mitchell was seen and examined this morning. He is resting comfortably in bed. Denies any issues overnight. States that he feels remarkably better compared to yesterday. Is alert and oriented 3. States that his daughter Alva will be later in today. Patient reports over the last few months he has had an discomfort which starts in his epigastric area and then subsequently proceeds up towards his chest. Currently denies any fever, chills, nausea, vomiting. Denies any palpitations or chest pain or chest discomfort. Review of Systems Constitutional: Reports: see HPI. Objective Last 24 Hrs of Vital Signs/I&O Vital Signs Date Time Temp Pulse Resp B/P B/P Pulse O2 O2 Flow FiO2 Mean Ox Delivery Rate 08/24 1015 178/94 08/24 1011 99.5 99 8 161/91 08/24 0847 99 161/91 08/24 0800 96.8 88 20 160/90 98 Room Air 08/24 0400 96 Room Air 08/24 0000 96 Room Air 08/23 2300 99.5 64 8 140/90 95 Room Air 08/23 2141 65 145/82 08/23 2000 96 Room Air 08/23 1834 158/91 08/23 1600 98.4 79 10 164/110 97 Room Air 08/23 1411 98.0 78 20 167/90 98 Room Air Intake & Output 08/24 1600 08/24 0800 08/24 0000 Intake Total 163 565.2 Output Total 200 200 Balance -37 365.2 Intake, IV 163 325.2 Intake, Oral 240 Number 0 Bowel Movements Output, Urine 200 200 Patient 88.451 kg Weight Weight Bed scale Measurement Method Physical Exam General Appearance: Alert, Oriented X3, Cooperative Skin: No Rashes Lymphatic: Cervical nl Cardiovascular: Normal S1, Normal S2, Irregular rate and rhythm Lungs: Clear to Auscultation Abdomen: Normal Bowel Sounds, Soft, No Tenderness Neurological: Normal Gait, Normal Speech, Strength at 5/5 X4 Ext Extremities: No Clubbing Vascular: Normal Pulses Current Medications: Current Medications Sig/Nandini Start time Last Medication Dose Route Stop Time Status Admin Atorvastatin Calcium 40 MG 1700 08/23 1700 DC 08/23 PO 1732 Atropine Sulfate 1 MG .STK-MED ONE 08/24 0129 DC IM 08/24 0130 Clopidogrel Bisulfate 75 MG DAILY 08/24 1000 AC 08/24 PO 0847 Clopidogrel Bisulfate 300 MG ONCE ONE 08/23 1830 DC 08/23 PO 08/23 1831 2000 Diltiazem HCl 125 MG Q24H 08/23 2345 DC 08/23 Sodium Chloride 100 ML IV 2354 Diltiazem HCl 125 MG ONCE ONE 08/23 0745 DC 08/23 Sodium Chloride 100 ML IV 08/23 2013 0830 Furosemide 20 MG DAILY 08/24 1000 DC IV Furosemide 20 MG BID 08/24 1000 AC 08/24 IV 0849 Glucagon 1 MG ONCE ONE 08/24 0130 DC 08/24 IV PUSH 08/24 0131 0137 Heparin Sodium 25,000 UNIT Q24H 08/23 0745 AC 08/24 (Porcine) IV 0533 Sodium Chloride 500 ML Insulin Aspart 0 TIDAC 08/23 1700 DC 08/23 SC 1714 Insulin Human Regular 0 Q6 08/24 1200 AC 08/24 SC 1246 Lisinopril 20 MG DAILY 08/23 1830 AC 08/24 PO 0847 Magnesium Sulfate 1 GM Q2H 08/24 0745 DC 08/24 Dextrose/Water 100 ML IV 08/24 1144 1004 Metoprolol Tartrate 25 MG BID 08/24 1000 AC 08/24 PO 1015 Metoprolol Tartrate 25 MG BID 08/23 1815 DC 08/23 PO 1834 Nitroglycerin 1 GM Q6 08/23 1825 AC 08/24 TOP 1247 Potassium Chloride 60 MEQ .STK-MED ONE 08/24 1222 DC PO 08/24 1223 Potassium Chloride 10 MEQ ONCE ONE 08/24 0930 DC 08/24 IV 08/24 0931 1100 Potassium Chloride 10 MEQ ONCE ONE 08/24 0930 DC 08/24 IV 08/24 0931 1104 Potassium Chloride 80 MEQ ONCE ONE 08/24 0645 DC PO 08/24 0646 Potassium Chloride 60 MEQ ONCE ONE 08/24 0645 DC 08/24 PO 08/24 0646 0639 Last 24 Hrs of Lab/Cedric Results Last 24 Hrs of Labs/Mics: Laboratory Tests 08/24/17 1200: APTT Pending 08/24/17 0724: TSH Cancelled, Free T4 Cancelled, Thyroid Peroxidase Ab Cancelled 08/24/17 0432: Anion Gap 15, Estimated GFR > 60, BUN/Creatinine Ratio 29.0 H, CBC w Diff NO MAN DIFF REQ, RBC 4.90, MCV 87.4, MCH 28.7, RDW 14.1, MPV 11.4 H, Gran % 75.0, Lymphocytes % 17.0 L, Monocytes % 7.2, Eosinophils % 0.5, Basophils % 0.3, Absolute Granulocytes 8.0 H, Absolute Lymphocytes 1.8, Absolute Monocytes 0.8 H, Absolute Eosinophils 0.1, Absolute Basophils 0, PUBS MCHC 32.9 L 08/24/17 0220: Glucose 156 H, Magnesium 1.3 L, Troponin I 0.33 *H, TSH 2.030, Free T4 1.82 H , Total T3 0.74 L, Thyroglobulin Antibody < 15, Thyroid Peroxidase Ab < 28 08/23/17 2205: APTT 72 H 08/23/173: Troponin I 0.44 *H 08/23/17 2030: Urine Color YEL, Urine Clarity CLEAR, Urine pH 6.0, Ur Specific [place] 1.015, Urine Protein TRACE H, Urine Ketones TRACE H, Urine Nitrite NEG, Urine Bilirubin NEG, Urine Urobilinogen 0.2, Ur Leukocyte Esterase NEG, Ur Microscopic SEDIMENT EXAMINED, Urine RBC RARE, Urine WBC RARE, Ur Epithelial Cells RARE, Urine Bacteria RARE H, Urine Mucus RARE, Urine Hemoglobin NEG, Urine Glucose NEG 08/23/17 1517: APTT 98 H 08/23/17 1350: Troponin I 0.38 *H Microbiology 08/23 1537 UPPER RESP: Surveillance Culture - RECD 08/23 1536 GI: Surveillance Culture - RECD Assessment/Plan Assessment: Mr. Mitchell is 56 year old male with a past medical history of hypertension ( not on any medication) who presented to the emergency department at [facility] on 08/23/2017 complaining of chest pain. It was reported that the patient's chest pain had begun on 08/19/2017. He subsequently visited the walk- in clinic and it was found that he was in atrial fibrillation. It was also reported that over the past six months, the patient has developed a decreased exercise tolerance. Problem list #Elevated troponins with NSTEMI #Atrial fibrillation of unclear duration. #CHF likely due to tachycardia induced cardiomypoathy. #Hypertension #New onset diabetes mellitus with hemoglobin A1c 12.2 #Thyroid Derangements, initial TSH 8.1, Free T4: 1.82 #Acute kidney injury #Elevated troponins with NSTEMI Patient was started on IV heparin and dosed aspirin, Plavix(after loading dose) nitroglycerin paste was also used for symptomatic relief. Patient was also started on metoprolol 25 mg twice a day for rate control. We also began lisinopril 20 mg daily, Lasix 20 mg for volume overload was also dosed. Patient did have elevated d-dimer and chest CT did not show any evidence of pulmonary embolism. Patient did develop bradycardia evening of 08/23/2016. Patient did receive glucagon to reverse bradycardia which was attributed to polypharmacy. #Atrial Fibrillation At the time of initial presentation the patient was started on IV Cardizem. The patient was also started on IV heparin. He was closely monitored. #Diabetes Initial lab work showed the patient had a hemoglobin A1c of 12.2. Obtained an endocrinology consultation. Patient was given 6 units Levemir overnigh. Will continue on Novolynn nothing by mouth sliding scale for now. C #Thyroid Lab Abnormalities Likely due to sick euthyroid. A repeat TSH, free T4 and free T3, anti-TPO and antithyroglobulin levels pending. #Acute kidney injury On day 2 of admission the patient's Cr. Normalized at 1.0. For DVT PPX the patient was maintained on IV heparin. The Patient was initially on a Diabetic Diet, however was then converted to NPO for upcoming catheterization procedure. Patient was a full code during the admission. Problem List: 1. Diabetes mellitus, new onset 2. Elevated troponin 3. Atrial fibrillation, rapid Pain Ratin Pain Location: No Pain Endorsed Pain Goal: Remain pain free Pain Plan: morphine Tomorrow's Labs & Rationales: NA 3. Atrial fibrillation, rapid Pain Ratin Pain Location: No Pain Endorsed
--- NOTE | 2017-08-24 07:54 | PN- Diabetes ---
Assessment/Plan Assessment: Patient feels better this morning. His fingerstick sugar was 134. He did not receive any Levemir last night. He received 1 mg of glucagon because of bradycardia. He is on sliding scale NovoLog before meals. The patient is still in atrial fibrillation but his heart rate is well controlled this morning. Plan: Suggest continue sliding scale NovoLog before meals. Would hold off on giving any Levemir at present. We will monitor her sugars today. With regard to his thyroid we need to repeat his thyroid function tests including free T4 TSH total T3 antithyroglobulin and antithyroid peroxidase. Subjective Subjective: Feels improved Review of Systems Constitutional: Denies: chills, fever. Cardiovascular: Denies: chest pain. Respiratory: Denies: short of breath. Gastrointestinal: Denies: nausea, vomiting. Objective Last 24 Hrs of Vital Signs/I&O Vital Signs Date Time Temp Pulse Resp B/P B/P Pulse O2 O2 Flow FiO2 Mean Ox Delivery Rate 08/24 0400 96 Room Air 08/24 0000 96 Room Air 08/23 2300 99.5 64 8 140/90 95 Room Air 08/23 2141 65 145/82 08/23 1999 96 Room Air 08/23 1834 158/91 08/23 1600 98.4 79 10 164/110 97 Room Air 08/23 1411 98.0 78 20 167/90 98 Room Air 08/23 1224 98.1 74 20 164/98 98 Room Air 08/23 1122 98.0 81 20 160/100 100 Room Air 08/23 1002 100 Room Air 08/23 0934 98.1 80 20 160/100 100 Room Air 08/23 0831 60 20 161/87 100 Nasal 2.0L Cannula 08/23 0802 178/106 Intake & Output 08/24 0800 08/24 0000 08/23 1600 Intake Total 163 565.2 Output Total 200 200 Balance -37 365.2 Intake, IV 163 325.2 Intake, Oral 240 Number 0 Bowel Movements Output, Urine 200 200 Patient 195 lb Weight Weight Bed scale Measurement Method Vital Signs Date Time Temp Pulse Resp B/P B/P Pulse O2 O2 Flow FiO2 Mean Ox Delivery Rate 08/24 0400 96 Room Air 08/24 0000 96 Room Air 08/23 2300 99.5 64 8 140/90 95 Room Air 08/23 2141 65 145/82 01/10 2000 96 Room Air 08/23 1834 158/91 08/23 1600 98.4 79 10 164/110 97 Room Air 08/23 1411 98.0 78 20 167/90 98 Room Air 08/23 1224 98.1 74 20 164/98 98 Room Air 08/23 1122 98.0 81 20 160/100 100 Room Air 08/23 1002 100 Room Air 08/23 0934 98.1 80 20 160/100 100 Room Air 08/23 0831 60 20 161/87 100 Nasal 2.0L Cannula 08/23 0802 178/106 Intake & Output 08/24 0800 08/24 0000 08/23 1600 Intake Total 163 565.2 Output Total 200 200 Balance -37 365.2 Intake, IV 163 325.2 Intake, Oral 240 Number 0 Bowel Movements Output, Urine 200 200 Patient 195 lb Weight Weight Bed scale Measurement Method Physical Exam General Appearance: alert, awake, comfortable Head: normal appearance Neck: normal inspection Respiratory: normal breath sounds Cardiovascular: regular rate/rhythm Abdomen: normal bowel sounds Extremities: normal inspection Current Medications: Current Medications Sig/Nandini Start time Last Medication Dose Route Stop Time Status Admin Aspirin 0 .STK-MED ONE 08/23 0850 DC PO Aspirin 325 MG ONCE ONE 08/23 0845 DC 08/23 PO 08/23 0846 0848 Atorvastatin Calcium 40 MG 1700 08/23 1700 DC 08/23 PO 1732 Clopidogrel Bisulfate 75 MG DAILY 08/24 1000 AC PO Clopidogrel Bisulfate 300 MG ONCE ONE 08/23 1830 DC 08/23 PO 08/23 1831 2000 Diltiazem HCl 125 MG Q24H 08/23 2345 DC 08/23 Sodium Chloride 100 ML IV 2354 Diltiazem HCl 125 MG ONCE ONE 08/23 0745 DC 08/23 Sodium Chloride 100 ML IV 08/23 2013 0830 Furosemide 20 MG DAILY 08/24 1000 DC IV Furosemide 20 MG BID 08/24 1000 AC IV Furosemide 0 .STK-MED ONE 08/23 1127 DC IV Furosemide 20 MG ONCE ONE 08/23 1100 DC 08/23 IV 08/23 1101 1126 Glucagon 1 MG ONCE ONE 08/24 0130 DC 08/24 IV PUSH 08/24 0131 0137 Heparin Sodium 25,000 UNIT Q24H 08/23 0745 AC 08/24 (Porcine) IV 0533 Sodium Chloride 500 ML Insulin Aspart 0 TIDAC 08/23 1700 AC 08/23 SC 1714 Lisinopril 20 MG DAILY 08/23 1830 AC 08/23 PO 2141 Magnesium Sulfate 1 GM Q2H 08/24 0745 UNVr Dextrose/Water 100 ML IV 08/24 1144 Metoprolol Tartrate 25 MG BID 08/23 181 DC 08/23 PO 1834 Nitroglycerin 1 GM Q6 08/23 1825 AC 08/24 TOP 0533 Potassium Chloride 80 MEQ ONCE ONE 08/24 0545 DC PO 08/24 0646 Potassium Chloride 60 MEQ ONCE ONE 08/24 644 DC 08/24 PO 08/24 0646 0639 Findings Pertinent Lab/Cedric Results: Laboratory Tests 08/24 08/24 08/24 0724 0432 0220 Chemistry Sodium (137 - 145 mmol/L) 140 Potassium (3.5 - 5.1 mmol/L) 3.0 L Chloride (98 - 107 mmol/L) 99 Carbon Dioxide (22 - 30 mmol/L) 26 Anion Gap (5 - 16) 15 BUN (9 - 20 mg/dL) 29 H Creatinine (0.7 - 1.2 mg/dL) 1.0 Estimated GFR (>60 ml/min) > 60 BUN/Creatinine Ratio (7 - 25 %) 29.0 H Glucose (65 - 99 mg/dL) Pending Magnesium (1.6 - 2.3 mg/dL) 1.3 L Troponin I (<0.11 ng/ml) 0.33 *H TSH (0.270 - 4.200 uIU/mL) Cancelled Pending Free T4 (0.64 - 1.79 ng/dL) Cancelled Pending Hematology CBC w Diff NO MAN DIFF REQ WBC (4.8 - 10.8 /CUMM) 10.7 RBC (4.70 - 6.10 /CUMM) 4.90 Hgb (14.0 - 18.0 G/DL) 14.1 Hct (42 - 52 %) 42.8 MCV (80.0 - 94.0 FL) 87.4 MCH (27.0 - 31.0 PG) 28.7 RDW (11.5 - 14.5 %) 14.1 Plt Count (130 - 400 /CUMM) 170 MPV (7.4 - 10.4 FL) 11.4 H Gran % (42.2 - 75.2 %) 75.0 Lymphocytes % (20.5 - 51.1 %) 17.0 L Monocytes % (1.7 - 9.3 %) 7.2 Eosinophils % (0 - 5 %) 0.5 Basophils % (0.0 - 2.0 %) 0.3 Absolute Granulocytes (1.4 - 6.5 /CUMM) 8.0 H Absolute Lymphocytes (1.2 - 3.4 /CUMM) 1.8 Absolute Monocytes (0.10 - 0.60 /CUMM) 0.8 H Absolute Eosinophils (0.0 - 0.7 /CUMM) 0.1 Absolute Basophils (0.0 - 0.2 /CUMM) 0 PUBS MCHC (33.0 - 37.0 G/DL) 32.9 L Immunology Thyroglobulin Antibody (< 61 U/mL) Pending Thyroid Peroxidase Ab (< 61 U/mL) Cancelled Pending 08/23 08/23 08/23 08/23 2205 2033 2030 1517 Chemistry Troponin I (<0.11 ng/ml) 0.44 *H Coagulation APTT (25 - 37 SEC) 72 H 98 H Urines Urine Color (YEL,AMB,STR) YEL Urine Clarity (CLEAR) CLEAR Urine pH (5.0 - 8.0) 6.0 Ur Specific [place] (1.001 - 1.035) 1.015 Urine Protein (NEG,<30 MG/DL) TRACE H Urine Ketones (NEG) TRACE H Urine Nitrite (NEG) NEG Urine Bilirubin (NEG) NEG Urine Urobilinogen (0.1 - 1.0 EU/dl) 0.2 Ur Leukocyte Esterase (NEG) NEG Ur Microscopic SEDIMENT EXAMINED Urine RBC (0 - 5 /HPF) RARE Urine WBC (0 - 2 /HPF) RARE Ur Epithelial Cells (NONE,FEW) RARE Urine Bacteria (NEG/NONE) RARE H Urine Mucus (FEW,NONE) RARE Urine Hemoglobin (NEG) NEG Urine Glucose (N MG/DL) NEG 08/23 1350 Chemistry Troponin I (<0.11 ng/ml) 0.38 *H
[2017-08-24 08:00] VITALS: BP 160/90
--- NOTE | 2017-08-24 09:55 | Discharge Summary ---
Visit Information Visit Dates Admission Date: 08/23/17 Discharge Date: 08/24/2017 Hospital Course Course Attending Physician: Toño DEGROOT PHD,Elian Cloe Primary Care Physician: Patient Has No Primary Care Dr Hospital Course: Mr. Mitchell is 56 year old male with a past medical history of hypertension ( not on any medication) who presented to the emergency department at [facility] on 08/23/2017 complaining of chest pain. It was reported that the patient's chest pain had begun on 08/19/2017. He subsequently visited the walk- in clinic and it was found that he was in atrial fibrillation. It was also reported that over the past six months, the patient has developed a decreased exercise tolerance. At the time of admission: Vital signs temperature 96.3, pulse 112 and regular, blood pressure 143/96, respiratory rate 18 with saturation 99% room air Labs significant for: Troponin 0.38, these subsequently trended as follows: 0.38 --> 0.44--> 0.33. Patient was admitted to the critical care unit and below is a summary of the care he received under us. Problem list #Atrial fibrillation of unclear duration. #Elevated troponins with NSTEMI #CHF likely due to tachycardia induced cardiomypoathy. #Hypertension #New onset diabetes mellitus with hemoglobin A1c 12.2 #Thyroid Derangements, initial TSH 8.1, Free T4: 1.82 #Acute kidney injury #Elevated troponins with NSTEMI Patient was started on IV heparin and dosed aspirin, Plavix(after loading dose) nitroglycerin paste was also used for symptomatic relief. Patient was also started on metoprolol 25 mg twice a day for rate control. We also began lisinopril 20 mg daily, Lasix 20 mg for volume overload was also dosed. Patient did have elevated d-dimer and chest CT did not show any evidence of pulmonary embolism. Patient did develop bradycardia evening of 08/23/2016. Patient did receive glucagon to reverse bradycardia which was attributed to polypharmacy. #Atrial Fibrillation At the time of initial presentation the patient was started on IV Cardizem. The patient was also started on IV heparin. He was closely monitored. #Diabetes Initial lab work showed the patient had a hemoglobin A1c of 12.2. We obtained an endocrinology consultation.The patient was initially started on Levemir 6 units at bedtime. Patient also had additional glucose control with NovoLog sliding scale. In light of cardiac disease his blood sugar was controlled very conservatively to avoid hypoglycemia. Patient also had deranged thyroid function tests. Likely due to sick euthyroid. A repeat TSH, free T4 and free T3, anti-TPO and antithyroglobulin levels were checked. #Acute kidney injury At the time of admission the patient had a creatinine value of 1.3. We had no prior labs to compare to. On day 2 of admission the patient's Cr. Normalized at 1.0. For DVT PPX the patient was maintained on IV heparin. The Patient was initially on a Diabetic Diet, however was then converted to NPO for upcoming catheterization procedure. Patient was a full code during the admission. Allergies: Coded Allergies: No Known Allergies (08/23/17) Pertinent Lab Results: SERVICE DATE: 08/23/17- EXAM TYPE: CARD - ECHOCARDIOGRAM EDU MITCHELL Age: 56 : 1960 Gender: M Exam Date: 08/23/2017 18:45 Exam Location: [facility] Ht (in): 67 Wt (lb): 215 BSA: 2.18 BP: 167 / 90 Ordering Physician: Sergio Guevara MD Referring Physician: Elian Lundberg MD, PhD Technologist: India Black RDCS Room Number: 114 Indications: AFIB/FLUTTER Rhythm: Sinus Technical Quality: good FINDINGS Left Ventricle Normal left ventricular size with mild left ventricular hypertrophy. Moderate to severely decreased systolic function with anterior and anteroseptal severe hypokinesis superimposed on global hypokinesis. The ejection fraction is visually estimated at 30%. Right Ventricle The right ventricle is normal in size and function. Right Atrium The right atrium is normal in size. Left Atrium The left atrium is moderately enlarged. The interatrial septum is intact. Mitral Valve The mitral valve is normal in structure and function. There is mild mitral regurgitation. Aortic Valve Structurally normal aortic valve without significant sclerosis or stenosis. There is no aortic regurgitation. Tricuspid Valve The tricuspid valve is normal in structure and function. There is mild tricuspid regurgitation. Pulmonary artery systolic pressure is normal. Pulmonic Valve Structurally normal pulmonic valve. There is mild pulmonic regurgitation. Pericardium Normal pericardium without effusion. No pleural effusion. Great Vessels Normal aortic root dimension. The aortic arch and great vessels are well seen and are normal. CONCLUSIONS 1. Moderately decreased systolic function with EF of 30% and regional wall motion abnormalities as noted above. 2. Mild left ventricular hypertrophy. 3. Moderate left atrial enlargement. 4. Mild mitral regurgitation. 5. Mild tricuspid regurgitation. 6. Mild pulmonic regurgitation. Elian Lundberg M.D. SERVICE DATE: 08/23/17- EXAM TYPE: US - US-COMPLETE ABDOMEN EXAMINATION: US ABDOMEN COMPLETE CLINICAL INFORMATION: Elevated liver enzymes. COMPARISON: None. TECHNIQUE: Real-time imaging of the abdominal viscera. FINDINGS: PANCREAS: Normal. ABDOMINAL AORTA: The proximal segment is normal in caliber. INFERIOR VENA CAVA: Visualized portions are normal. LIVER: Normal. The liver demonstrates normal size, contour and echogenicity. No focal lesion or intrahepatic biliary duct dilatation. GALLBLADDER: There are numerous gallstones, with a rlux-[id number]-buteqg complex. There is gallbladder wall thickening to a maximum of 1.0 cm, without pericholecystic fluid. COMMON BILE DUCT: Normal in caliber measuring 0.7 cm in diameter. RIGHT KIDNEY: Normal. No hydronephrosis. No renal calculi or focal parenchymal lesions. The kidney measures 12.5 cm in maximum dimension. LEFT KIDNEY: Normal. No hydronephrosis. No renal calculi or focal parenchymal lesions. The kidney measures 12.1 cm in maximum dimension. SPLEEN: Normal. The spleen measures 11.1 cm in maximum dimension. FREE FLUID: None. IMPRESSION: There is marked cholelithiasis. There is gallbladder wall thickening, consistent with cholecystitis, acute versus chronic. Please correlate clinically. No choledocholithiasis is seen. DICTATED BY: Terrell Dennison MD SERVICE DATE: 08/23/17- EXAM TYPE: US - US-EXT BILAT VENOUS DOPPLER EXAMINATION: US TRIPLEX OF LOWER EXTREMITIES, BILATERAL CLINICAL INFORMATION: 56-year-old male with lower extremity swelling. COMPARISON: None TECHNIQUE: Color-flow triplex imaging with spectral analysis and compression Doppler were performed on the lower extremities. FINDINGS: Respiratory variation, normal compression and augmented flow are noted throughout the lower extremities. The visualized common femoral vein, superficial femoral vein, profunda femoral vein, popliteal vein and midcalf peroneal and posterior tibial venous segments show no evidence of deep venous thrombosis. There is no Baez's cyst. IMPRESSION: Normal triplex scan without evidence of deep venous thrombosis involving the lower extremities. DICTATED BY: Shine Sprague DO SERVICE DATE: 08/23/17 EXAM TYPE: RAD - XRY-PORTABLE CHEST XRAY EXAMINATION: XR PORTABLE CHEST CLINICAL INFORMATION: Dyspnea, new rapid atrial fibrillation, rule out CHF COMPARISON: None TECHNIQUE: Portable frontal view of the chest was obtained. FINDINGS: Lung volumes are symmetric. No focal consolidation is seen. No evidence of pneumothorax, significant pleural effusion, or overt pulmonary edema. The cardiac silhouette is enlarged. No acute osseous findings are seen. IMPRESSION: Enlarged cardiac silhouette. No overt edema. DICTATED BY: Blayne Laws MD SERVICE DATE: 08/23/17 EXAM TYPE: CAT - CTA CHEST-PULMONARY EMBOLISM EXAMINATION: CT ANGIOGRAM OF THE CHEST WITH AND WITHOUT CONTRAST (CT PULMONARY ANGIOGRAM FOR PE) CLINICAL INFORMATION: Shortness of breath, rapid atrial fibrillation COMPARISON: Chest x-ray from earlier today TECHNIQUE: Prior to contrast administration, noncontrast localization images were obtained. Subsequently, multidetector volumetric imaging was performed from the thoracic inlet to below the diaphragms following the administration of 95 mL Optiray 320 intravenous contrast. No contrast reaction reported. Sagittal, coronal, and MIP oblique sagittal reformatted images were obtained on the CT workstation, uploaded to PACS, and reviewed. Total exam dose-length product 531.61 mGy-cm. FINDINGS: QUALITY OF STUDY/CONTRAST BOLUS: Satisfactory PULMONARY ARTERIES: No central or segmental pulmonary emboli. Assessment of the subsegmental vasculature is limited due to respiratory motion artifact. THORACIC AORTA: Not fully evaluated given the contrast bolus timing. The proximal ascending aorta measures approximately 4.3 cm in diameter. LUNG: No regions of consolidation are present bilaterally. There is smooth interlobular septal thickening towards the lung periphery, most prominent at the bases and most consistent with mild interstitial edema. Mild associated bronchial wall thickening is noted. PLEURA: No pneumothorax. Trace right pleural effusion is noted. MEDIASTINUM: The visualized thyroid gland is unremarkable. There are mildly enlarged subcarinal, prevascular, and paratracheal lymph nodes which are nonspecific. There is moderate cardiomegaly. Coronary artery calcifications are present. CHEST WALL/AXILLA: No axillary or internal mammary lymphadenopathy. OSSEOUS STRUCTURES: Syndesmophytes are noted in the spine, favored to reflect ankylosing spondylitis. UPPER ABDOMEN: There is mild reflux of contrast into the hepatic veins which may be seen with elevated right heart pressures. IMPRESSION: 1. No pulmonary embolus identified. Limited assessment of the distal vasculature due to respiratory motion artifact. 2. Mild interstitial edema. 3. Mild lymphadenopathy which is nonspecific and can be reactive in the setting of edema. Other reactive causes are also possible. In the proper clinical setting, a malignant etiology could also have this appearance. 4. Cardiomegaly. Mild reflux of contrast into the hepatic veins, which can be seen with elevated right heart pressures. 5. Dilated ascending aorta to approximately 4.3 cm. 6. Trace right pleural effusion. 7. Appearance of the spine is consistent with ankylosing spondylitis. VTE: negative DICTATED BY: Veto DEGROOT,Blayne Disposition Summary Disposition Principal Diagnosis: NSTEMI Additional Diagnosis: Atrial Fibrillation Discharge Disposition: other general hospital Discharge Instructions General Discharge Information Code Status: Full Code Patient's Diet: Heart Healthy--> NPO (for now, awating cardiac cath) Patient's Activity: As tolerated Follow-Up Instructions/Appts: Please f/u with rn gyn after discharge Medications at Discharge Discharge Medications: Continue taking these medications: Aspirin (Ecotrin*) 81 MG TABLET.DR 1 Tablet ORAL DAILY Instructions: GIVEN Comments: Last Taken:1000 Time:08/24/17 Oxymetazoline HCl (Afrin) 0.05 % SPRAY 1 [place] In the nose DAILY as needed for ALLERGIES Comments: Last Taken: Time:NOT GIVEN Start taking the following new medications: Clopidogrel Bisulfate (Plavix) 75 MG TABLET 75 Milligram ORAL DAILY Qty = 30 No Refills Nitroglycerin (Nitro-Bid) 2 % OINT...G. 1 Gram On the skin EVERY SIX HOURS Qty = 1 No Refills Metoprolol Tartrate (Metoprolol Tartrate) 25 MG TABLET 25 Milligram ORAL TWICE DAILY Qty = 30 No Refills Lisinopril (Lisinopril) 20 MG TABLET 20 Milligram ORAL DAILY Qty = 30 No Refills Heparin Sodium,Porcine/D5w (Heparin-D5w 25,000 Unit/250 Ml) 25,000 UNIT/250 ML ( 100 UNIT/ML) IV.SOLN 25,000 Unit INTRAVEN EVERY 24 HOURS Qty = 1 No Refills Copies To: Jakob DEGROOT,Jered Thomason; Toño DEGROOT PHD,Elian Cole
[2017-08-24 10:11] VITALS: BP 161/91
--- NOTE | 2017-08-24 10:12 | ECHOCARDIOGRAM REPORT ---
EDU BIRCH Age: 56 : 1960 Gender: M Exam Date: 08/23/2017 18:45 Exam Location: [facility] Ht (in): 67 Wt (lb): 215 BSA: 2.18 BP: 167 / 90 Ordering Physician: Sergio Guevara MD Referring Physician: Elian Lundberg MD, PhD Technologist: India Black [facility] Room Number: 114 Indications: AFIB/FLUTTER Rhythm: Sinus Technical Quality: good FINDINGS Left Ventricle Normal left ventricular size with mild left ventricular hypertrophy. Moderate to severely decreased systolic function with anterior and anteroseptal severe hypokinesis superimposed on global hypokinesis. The ejection fraction is visually estimated at 30%. Right Ventricle The right ventricle is normal in size and function. Right Atrium The right atrium is normal in size. Left Atrium The left atrium is moderately enlarged. The interatrial septum is intact. Mitral Valve The mitral valve is normal in structure and function. There is mild mitral regurgitation. Aortic Valve Structurally normal aortic valve without significant sclerosis or stenosis. There is no aortic regurgitation. Tricuspid Valve The tricuspid valve is normal in structure and function. There is mild tricuspid regurgitation. Pulmonary artery systolic pressure is normal. Pulmonic Valve Structurally normal pulmonic valve. There is mild pulmonic regurgitation. Pericardium Normal pericardium without effusion. No pleural effusion. Great Vessels Normal aortic root dimension. The aortic arch and great vessels are well seen and are normal. CONCLUSIONS 1. Moderately decreased systolic function with EF of 30% and regional wall motion abnormalities as noted above. 2. Mild left ventricular hypertrophy. 3. Moderate left atrial enlargement. 4. Mild mitral regurgitation. 5. Mild tricuspid regurgitation. 6. Mild pulmonic regurgitation. Elian Lundberg M.D. (Electronically Signed) Final Date: 24 August 2017 10:12 MEASUREMENTS (Male / Female) Normal Values 2D ECHO LV Diastolic Diameter PLAX 4.9 cm 4.2 - 5.9 / 3.9 - 5.3 cm LV Systolic Diameter PLAX 4.2 cm 2.1 - 4.0 cm LV Fractional Shortening PLAX 14.3 % 25 - 46 % LV Ejection Fraction 2D Teich 30.3 % IVS Diastolic Thickness 1.4 cm LVPW Diastolic Thickness 1.4 cm LV Relative Wall Thickness 0.6 RV Internal Dim ED PLAX 3.4 cm 1.9 - 3.8 cm LVOT Diameter 2.3 cm Aortic Root Diameter 3.6 cm LA Systolic Diameter LX 4.6 cm 3.0 - 4.0 / 2.7 - 3.8 cm LV Ejection Fraction MOD BP 44.2 % >= 55 % LV Diastolic Length 4C 7.5 cm 6.9 - 10.3 cm LV Diastolic Area 4C 32.4 cm LV Diastolic Volume MOD 4C 115.0 cm LV Ejection Fraction MOD 4C 40.0 % LV Stroke Volume MOD 4C 46.0 cm LV Systolic Length 4C 6.9 cm LV Systolic Area 4C 23.6 cm LV Systolic Volume MOD 4C 69.0 cm LV Ejection Fraction MOD 2C 42.3 % LV Diastolic Volume 4C AL 119.6 cm 85 - 139 / 69 - 109 cm LV Systolic Volume 4C AL 68.5 cm LV Ejection Fraction 4C AL 42.7 % LV Stroke Volume 4C AL 51.1 cm LV Ejection Fraction 2C AL 45.5 % LA Volume 64.0 cm 18 - 58 / 22 - 52 cm Ascending Aorta Diameter 3.8 cm DOPPLER AV Peak Velocity 82.0 cm/s AV Peak Gradient 2.7 mmHg AV Mean Velocity 67.8 cm/s AV Mean Gradient 2.0 mmHg AV Velocity Time Integral 14.2 cm LVOT Peak Velocity 91.0 cm/s LVOT Peak Gradient 3.3 mmHg LVOT Mean Velocity 66.6 cm/s LVOT Mean Gradient 2.0 mmHg LVOT Velocity Time Integral 16.0 cm LVOT Stroke Volume 66.5 cm AV Area Cont Eq vti 4.7 cm AV Area Cont Eq pk 4.6 cm MV Peak Velocity 97.2 cm/s MV Peak Gradient 3.8 mmHg MV Mean Velocity 41.9 cm/s MV Mean Gradient 1.0 mmHg Mitral E Point Velocity 78.0 cm/s MV PHT Velocity 102.0 cm/s MV Deceleration Cuming 546.0 cm/s MV Pressure Half Time 56.0 ms MV Area PHT 3.9 cm MV Deceleration Time 180.0 ms TR Peak Velocity 278.0 cm/s TR Peak Gradient 30.9 mmHg Right Atrial Pressure 10.0 mmHg Pulmonary Artery Systolic Pressu 40.9 mmHg Right Ventricular Systolic Press 40.9 mmHg PV Peak Velocity 89.9 cm/s PV Peak Gradient 3.2 mmHg PV Mean Velocity 62.9 cm/s PV Mean Gradient 2.0 mmHg PV Velocity Time Integral 21.6 cm LV E' Lateral Velocity 8.9 cm/s Mitral E to LV E' Lateral Ratio 8.8 LV E' Septal Velocity 4.3 cm/s Mitral E to LV E' Septal Ratio 18.2
[2017-08-24 10:15] VITALS: BP 178/94
[2017-08-24] MEDS ORDERED: PLAVIX75 M1 PO (10:18)
[2017-08-24] MEDS ORDERED: METOPROLOL TART25 M1 PO (10:18)
[2017-08-24] MEDS ORDERED: NITRO-BID1 GM TOP (10:18)
[2017-08-24] MEDS ORDERED: LISINOPRIL20 M1 PO (10:18)
[2017-08-24] MEDS ORDERED: HEPARIN-D525000 UNIT IV (10:19)
[2017-08-24] MEDS ORDERED: LIPITOR40 M1 PO (10:21)
--- NOTE | 2017-08-24 11:31 | PN- Cardiology ---
Subjective Subjective: * No chest discomfort or shortness of breath. * atrial fibrillation with controlled heart rate. * Pauses reported on combination of metoprolol and Cardizem and Cardizem stopped * Echo shows a decreased EF of 30% with moderate left atrial enlargement and LVH * Rising cardiac enzymes Objective Vital Signs and I&Os Vital Signs Date Time Temp Pulse Resp B/P B/P Pulse O2 O2 Flow FiO2 Mean Ox Delivery Rate 08/24 1015 178/94 08/24 1011 99.5 99 8 161/91 08/24 0847 99 161/91 08/24 0800 96.8 88 20 160/90 98 Room Air 08/24 0400 96 Room Air 08/24 0000 96 Room Air 08/23 2300 99.5 64 8 140/90 95 Room Air 08/23 2141 65 145/82 08/23 2000 96 Room Air 08/23 1834 158/91 08/23 1600 98.4 79 10 164/110 97 Room Air 08/23 1411 98.0 78 20 167/90 98 Room Air 08/23 1224 98.1 74 20 164/98 98 Room Air Intake & Output 08/24 1600 08/24 0800 08/24 0000 08/23 1600 08/23 0800 08/23 0000 Intake Total 163 565.2 Output Total 200 200 Balance -37 365.2 Intake, IV 163 325.2 Intake, Oral 240 Number 0 Bowel Movements Output, Urine 200 200 Patient 195 lb 215 lb Weight Weight Bed scale Standing Scale Measurement Method Physical Exam: Physical Exam: General: WD/WN male in NAD; alert and oriented x 3 HEENT: NC/AT, PERRL, EOMI Neck: no JVD, no carotid bruit Heart: irregularly irregular without murmur Lungs: clear bilaterally ABdomen: soft, NT, +ve bowel sounds Extremities: 1+ leg edema Assessment/Plan Assessment/Plan * This patient has atrial fibrillation of unclear duration. His EF is low and I suspect that he has a tachycardia induced cardiomyopathy but myocardial sschemia cannot be excluded. We will pursue a cardiac catheterization today. Keep NPO except for medications today. Continue IV heparin. Begin Lopressor at 25mg BID for rate control. No Cardizem since the combination of a beta keyon and calcium keyon resulted in some pauses. * CHF: Diurese with Lasix 20mg IV BID. We will consider adding digoxin. * Hypertension: Continue Lisinopril 20mg daily and follow his BUN, creatinine and potassium. Replete potassium. * Follow endocrinology recommendations. * Increased D-dimer. We will consider peripheral pulmonary emboli. For now continue IV heparin. * NE: Continue asprin 324mg daily, IV heparin and Plavix 75 mg daily. We will hold off on a statin due to his elevated hepatic transaminases that are the likely result of hepatic congestion. Repeat LFT's. Begin NTG paste 1" Q 6 hours. Beta keyon as above. Follow cardiac enzymes until they peak. Continue telemetry? Yes
[2017-08-24 13:04] LABS: PTT 64 SEC (25-37)
== END 2017-08-24 13:00 | disposition short-term general hospital (02) | DRG 281 ==
LOC: ERH 07:06 → ERHI 08:47 → CRI 08:47 → ERH 08:55 → EDBEDREQ 14:20 → ENRESERV 14:23 → CRI 14:33 → ERHI 14:50 → ENTRNSPT 15:14 → CMPTRNSPT 15:48 → CRI 16:02
PROVIDERS: Emergency Medicine; Internal Medicine; Internal Medicine Interventional Cardiology; Pediatrics; Student in an Organized Health Care Education/Training Program
DX: I21.4 Non-ST elevation (NSTEMI) myocardial infarction (principal); N17.9 Acute kidney failure, unspecified; I42.8 Other cardiomyopathies; I11.0 Hypertensive heart disease with heart failure; I50.9 Heart failure, unspecified; I48.91 Unspecified atrial fibrillation; E07.81 Sick-euthyroid syndrome; E11.9 Type 2 diabetes mellitus without complications; E03.9 Hypothyroidism, unspecified; K80.20 Calculus of gallbladder without cholecystitis without obstruction
CPT/HCPCS: CCU; 36415; 71045; 81001; 82436; 86376; 86800; 93005; 93010; 93306; 93970; J0461; J1610; J1644; J1815; J1940